=== PATIENT | female | born 1980 | race Two or more races ===

== ENCOUNTER 2022-02-07 16:20 | Emergency (ER) | payer SELFPAY ==
[~2022-02-07] VITALS: Ht 162.6 cm; Wt 84.0 kg
[2022-02-07 16:25] VITALS: BP 118/83
== END 2022-02-07 17:55 | disposition home or self-care (01) ==
LOC: ER 16:20
DX: F10.10 Alcohol abuse, uncomplicated (principal); Y90.9 Presence of alcohol in blood, level not specified